=== PATIENT | male | born 1970 | race Caucasian/White ===

== ENCOUNTER 2018-09-16 10:19 | Emergency (ER) | payer OTHER ==
[~2018-09-16] VITALS: Ht 177.8 cm; Wt 64.0 kg
[2018-09-16] MEDS ORDERED: ONDANSETRON 2MG/ML, 2ML IVPush ONE (10:30)
[2018-09-16] MEDS ORDERED: MORPHINE SULFATE 4 MG/ML, 1ML IVPush PRN (10:30)
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
--- NOTE | 2018-09-16 11:57 | NUR ---
VSS. No needs. Refusing pain meds at this time.
--- NOTE | 2018-09-16 12:12 | NUR ---
Refusing pain meds at this time. No other needs.
--- NOTE | 2018-09-16 13:22 | NUR ---
Provided with urinal. No other needs.
--- NOTE | 2018-09-16 13:51 | NUR ---
break rn: CT called to inquire about delay in CT read, extractions technologist Eric states that radiologist should be reading scan at this time. Pt in bed, NAD, no needs at this time
[2018-09-16 14:42] VITALS: BP 112/62
--- NOTE | 2018-09-16 14:52 | NUR ---
Patient/Caregiver given discharge instructions and they have confirmed that they understand the instructions. Patient ambulatory with steady gait with crutches.
== END 2018-09-16 14:53 | disposition home or self-care (01) ==
LOC: ED 11:17
DX: S40.011A Contusion of right shoulder, initial encounter (principal); S60.221A Contusion of right hand, initial encounter; S70.01XA Contusion of right hip, initial encounter; S80.01XA Contusion of right knee, initial encounter; W18.30XA Fall on same level, unspecified, initial encounter; Y93.79 Activity, other specified sports and athletics; Y92.410 Unspecified street and highway as the place of occurrence of the external cause; Y99.8 Other external cause status
CPT/HCPCS: 72192; 99284